=== PATIENT | female | born 1980 | race Caucasian/White ===

== ENCOUNTER 2020-08-01 08:48 | Emergency (ER) | payer BC ==
[~2020-08-01] VITALS: Ht 167.6 cm; Wt 68.0 kg
[2020-08-01 09:14] VITALS: BP_SYST 125
[2020-08-01] MEDS ORDERED: KETOROLAC TROMETHAMINE 60 MG/2 ML VIAL IM ONE (09:30)
[2020-08-01] MEDS ORDERED: PROCHLORPERAZINE EDISYLATE 10 MG/2 ML VIAL IM ONE (09:30)
[2020-08-01] MEDS ORDERED: TRAM50TA2 PO (10:57)
[2020-08-01 11:12] VITALS: BP_SYST 124
== END 2020-08-01 11:12 | disposition home or self-care (01) ==
LOC: SED 08:48
DX: G43.901 Migraine, unspecified, not intractable, with status migrainosus (principal)
CPT/HCPCS: 70450; 76376; 96372; 99284; J0780; J1885